=== PATIENT | female | born 1935 | race Caucasian/White ===

== ENCOUNTER → 2018-06-24 11:53 | Outpatient (CLI) | payer MEDICARE, OTHER, SELFPAY ==
--- NOTE | 2018-06-24 11:56 | DI.RAD.S_ITS ---
PROCEDURE: XR LUMBAR SPINE MIN 4V INDICATIONS: Lumbar stenosis TECHNIQUE: 5 views of the lumbar spine were acquired. COMPARISON: None. FINDINGS: Bones: 5 nonrib-bearing vertebrae are present. There is sacralization of L5 on the right There is marked dextroconvex rotoscoliosis. Retrolisthesis at L1-2 and L2-3, anterolisthesis at L4-5. Multilevel disc degeneration. No vertebral body compression fractures. No suspicious bony lesions. Soft tissues: Overlying bowel gas pattern is normal. No suspicious soft tissue calcifications. Oblique images: No pars defects. IMPRESSION: Rotoscoliosis and multilevel degenerative changes with malalignment. Dictated by: Ozzie Claros M.D. on 06/24/2018 at 12:35 Approved by: Ozzie Claros M.D. on 06/24/2018 at 12:37
== END ==
PROVIDERS: PCP Family Medicine; Visit Provider Physical Medicine & Rehabilitation
DX: M51.36 Other intervertebral disc degeneration, lumbar region (principal); M48.062 Spinal stenosis, lumbar region with neurogenic claudication; M41.86 Other forms of scoliosis, lumbar region
CPT/HCPCS: 72110; 99214

== ENCOUNTER → 2018-08-05 09:31 | Outpatient (CLI) | payer MEDICARE, OTHER, SELFPAY ==
--- NOTE | 2018-08-05 09:33 | DI.MRI.S_ITS ---
PROCEDURE: MR LUMBAR SPINE WO CON INDICATIONS: Lumbar stenosis TECHNIQUE: Noncontrast sagittal T1 spin echo and T2 fast echo, sagittal STIR, axial T1 and T2 fast spin echo through the lumbar spine. In this patient, coronal T2-weighted images were also performed. COMPARISON: [facility], MR, L-SPINE WITHOUT CONTRAST, 09/27/2007, 10:40. [facility], CR, XR LUMBAR SPINE MIN 4V, 06/24/2018, 11:47. FINDINGS: Image quality: Motion Alignment and Curvature: Moderate dextroconvex scoliosis is seen. Mild retrolisthesis is seen at the T12-L1, L1-L2, and L2-L3 levels. There is minimal anterolisthesis seen at L3-L4 and L4-L5. Bone Marrow: Within the posterior aspect of the L2 vertebral body, there is a focus that is hypointense on T1-weighted and T2-weighted imaging, with no significant increased STIR signal. This is new compared to the prior examination. No acute vertebral body compression fractures. Spinal Cord: Conus medullaris terminates at the L1 level. Visualized cord demonstrates normal signal and size. Paraspinous Soft Tissues: No paravertebral masses. T12-L1: Mild to moderate loss of disc height and disc signal are seen. Moderate disc bulge is seen. Moderate bilateral neural foraminal narrowing is seen, left worse than right. Mild central canal narrowing is seen. These degenerative changes have progressed compared to 2006. L1-L2: Moderate loss of disc height is seen. Loss of disc signal is seen. Reactive marrow endplate changes are seen, which are hyperintense on T1-weighted and T2-weighted imaging and most consistent with fatty metaplasia (Modic type II changes). Moderate to prominent disc bulge is seen, which is eccentric to the left. Mild to moderate facet hypertrophy is seen. There is mild to moderate right-sided and at least moderate left-sided neural foraminal narrowing seen. These degenerative changes have progressed compared to the prior MRI. L2-L3: Moderate loss of disc height is seen. Loss of disc signal is seen. Moderate to prominent disc bulge is seen, which is eccentric to the left. At least moderate facet hypertrophy is seen. There is associated moderate hypertrophy of the ligamentum flavum. There is at least moderate right-sided and moderate to severe left-sided neural foraminal narrowing seen. There is associated impingement upon the exiting left L2 nerve root. Moderate to severe central canal narrowing is seen, as on series 6 image 11. These degenerative changes are progressed compared to 2007. L3-L4: Mild to moderate loss of disc height and disc signal are seen. Prominent facet hypertrophy is seen, with associated prominent hypertrophy of the ligamentum. There is at least moderate right-sided and moderate right-sided neural foraminal narrowing seen. Moderate to severe central canal narrowing is seen, as on series 9 image 18. These degenerative changes have greatly progressed compared to 2007. L4-L5: Moderate disc bulge is seen, which is eccentric to the right. Prominent facet hypertrophy is seen, with associated moderate hypertrophy of the ligamentum flavum. Moderate to severe bilateral neural foraminal narrowing is seen. There is a degree of impingement seen upon the exiting nerve roots. Moderate to severe central canal narrowing is seen. These degenerative changes are worse than in 2007. L5-S1: Mild loss of disc height is seen. Loss of disc signal is seen. Mild generalized disc bulge is seen. Mild facet joint hypertrophy is seen. [id number] bilateral neural foraminal narrowing is seen. Mild to moderate central canal narrowing is seen. These degenerative changes have progressed compared to the prior. IMPRESSION: Multiple levels of lumbar spine degenerative change are seen, which have progressed compared to 2007. Moderate dextroconvex scoliosis. Dictated by: Preet Kennedy M.D. on 08/05/2018 at 10:39 Approved by: Preet Kennedy M.D. on 08/05/2018 at 10:52
== END ==
PROVIDERS: Family Provider Nurse Practitioner; PCP Family Medicine; Visit Provider Physical Medicine & Rehabilitation
DX: M48.062 Spinal stenosis, lumbar region with neurogenic claudication (principal); M48.07 Spinal stenosis, lumbosacral region; M41.9 Scoliosis, unspecified; M51.36 Other intervertebral disc degeneration, lumbar region; M51.37 Other intervertebral disc degeneration, lumbosacral region; Z96.652 Presence of left artificial knee joint; M85.80 Other specified disorders of bone density and structure, unspecified site; M41.50 Other secondary scoliosis, site unspecified
CPT/HCPCS: 72148; 99213

== ENCOUNTER 2018-08-09 13:30 | Outpatient (CLI) | payer MEDICARE, OTHER, SELFPAY ==
[2018-08-09] VITALS (8 sets, daily range): BP systolic 122–176; BP diastolic 54–75; PULSE 67–74; RESP 16–18; TEMP 36.6; O2SAT 98–100
--- NOTE | 2018-08-09 13:33 | DI.RAD.S_ITS ---
PROCEDURE: PAIN L INTERLAMINAR/CAUDAL INJ INDICATIONS: SPINAL STENOSIS FINDINGS: Fluoroscopic spot filming was performed to verify placement of spinal needles at the L4-L5 level(s), as labeled on the films. Appropriate location(s) of the needle tip(s) was confirmed by injection of iodinated contrast. IMPRESSION: Fluoroscopy for pain management. Dictated by: Padmaja Hanks M.D. on 08/09/2018 at 16:17 Approved by: Padmaja Hanks M.D. on 08/09/2018 at 16:17
[2018-08-09] MEDS: MIDAZOLAM 5 MG/5 ML VIAL IV (14:37)
[2018-08-09] MEDS: IOPAMIDOL 15 ML VIAL 3 ML INJ (14:41)
[2018-08-09] MEDS: DEXAMETHASONE 10 MG/ML VIAL 20 MG INJ (14:41)
[2018-08-09] MEDS: BUPIVACAINE 0.25% (PF) VIAL 2 ML INJ (14:41)
[2018-08-09] MEDS: methylPREDNISolone acetate 80 MG/ML VIAL INJ (14:41)
--- NOTE | 2018-08-09 14:46 | P.PCN_ITS ---
Procedures Date/Time Date of procedure: 08/09/18 Time of procedure: 14:45 General Procedure description: PROVIDER: Quintin Dooley DO Operative Note PREOP DIAGNOSIS 1. HNP WITH RADICULAR FEATURES, 2. MULTILEVEL CENTRAL STENOSIS, POST OP DIAGNOSIS 1. HNP WITH RADICULAR FEATURES, 2. MULTILEVEL CENTRAL STENOSIS PROCEDURES 1. FLUORSCOPICALLY GUIDED CONTRAST CONTROLLED INTERLAMINAR EPIDURAL STEROID INJECTION -L4/5 PHYSICIAN: Quintin Dooley DO INDICATIONs: Nanda is referred by Dr. Arellano for treatment of Bilateral Foraminal Stenosis R> L LE symptoms. FINDINGS Multilevel Central Spinal Stenosis with Nerve Root Compression DESCRIPTION OF PROCEDURE Fluoroscopically guided, contrast-controlled L4/5 translaminar epidural steroid injection. Following denial of allergy and review of potential side effects and complications, including, but not necessarily limited to, infection, allergic reaction, local tissue breakdown, temporary as well as permanent nerve injury, paralysis, stroke and possible , the patient indicated that the patient understood and agreed to proceed. An informed consent document was signed by the patient, witnessed by a nurse, and placed in the patient's chart. Additionally, other treatment options including modalities, medications, and physical therapy were reviewed with the patient. After review of previous anaesthesic history and IV conscious sedation the patient was deemed safe to proceed with todays procedure with IV conscious sedation as ASA class II designation. Safety time-out was performed to confirm patient ID, procedure to be performed and site of procedure. IV sedation was accomplished with a combination of 1mg was administered by the RN after DO order , titrated to patient comfort during the course of the procedure while the patient remained responsive to all verbal commands In the prone position, following sterile prep and drape of the lumbar region, the L4/5 translaminar space was identified fluoroscopically. The skin was anesthetized via a 25-gauge, 1.5-inch needle with 1% lidocaine solution. At this point, a 22-gauge short bevel spinal needle was atraumatically introduced and advanced under fluoroscopic guidance into the region of the L4/5 translaminar space. Depth was confirmed on lateral view. Radiological data, including multiple fluoroscopic views of the lumbar spine, reveal a spinal needle at the L4/5 translaminar space. Lateral views then show placement of the needle in the epidural space. Subsequent views show contrast material flowing superiorly and inferiorly in the epidural space. No vascular or intrathecal uptake is observed. At this point, using loss of resistance technique with saline and air, the epidural space was entered. This was confirmed following negative aspiration with injection of approximately 1.5 cc of Isovue 200, showing excellent epidural flow without vascular or intrathecal uptake. At this point, 1 cc of 1 % lidocaine solution combined with 3 cc or 20 mg of dexamethasone and 80mg Depo medrol was injected without incident. The patient tolerated the procedure well without signs or symptoms of complications prior to transfer to the recovery area continued monitoring without incident. The patient was then transferred to the recovery area where they were observed for an appropriate period of time after the injection. The patient reported a VAS score of 6 prior to the procedure and a post- procedure VAS of 0. Total Fluoroscopy Time: 11.8 seconds, 8.99 mGy Total Conscious Sedation Time: 24min POST OP INSTRUCTIONS The patient was provided a Pain Log to continue to record their response to the target-specific procedure prior to follow-up visit with their referring physician. Additionally, specific post-injection care instructions and a contact number to our office were provided if concerns arise regarding possible complications associated with the procedure are suspected. Quintin Dooley DO Complications: none
--- NOTE | 2018-08-10 13:21 | PC.NURSE ---
post follow up call made and pt is doing great. She said Absolutely Wonderful. pt knows to continue with pain log and bring to F/U appt.
== END 2018-08-09 15:26 ==
PROVIDERS: PCP Family Medicine; Visit Provider Physical Medicine & Rehabilitation
DX: M48.062 Spinal stenosis, lumbar region with neurogenic claudication (principal); M51.16 Intervertebral disc disorders with radiculopathy, lumbar region
CPT/HCPCS: 62323; 99152; J1040; J1100; J2250

== ENCOUNTER 2018-11-16 08:47 | Outpatient (CLI) | payer MEDICARE, OTHER, SELFPAY ==
--- NOTE | 2018-11-16 08:49 | DI.RAD.S_ITS ---
PROCEDURE: PAIN L INTERLAMINAR/CAUDAL INJ INDICATIONS: SPINAL STENOSIS FINDINGS: Fluoroscopic spot filming was performed to verify placement of spinal needles at the L4-L5 level(s), as labeled on the films. Appropriate location(s) of the needle tip(s) was confirmed by injection of iodinated contrast. Dictated by: Henrry Hinton M.D. on 11/17/2018 at 11:16 Approved by: Henrry Hinton M.D. on 11/17/2018 at 11:16
[2018-11-16 09:10] VITALS: BP 107/71; PULSE 96; RESP 16; TEMP 36.2; O2SAT 95
[2018-11-16 09:51] VITALS: BP 130/77; PULSE 73; RESP 16; O2SAT 99
[2018-11-16 09:55] VITALS: BP 135/72; PULSE 72; RESP 18; O2SAT 99
[2018-11-16 09:59] VITALS: BP 135/72; PULSE 70; RESP 16; O2SAT 98
--- NOTE | 2018-11-16 10:02 | PC.NURSE ---
ASSISTING PT OFF TABLE AND TRANSPORTING TO POST PROC AREA IN STABLE CONDITION
[2018-11-16 10:03] VITALS: BP 114/69; PULSE 84; RESP 16; O2SAT 98
--- NOTE | 2018-11-16 10:04 | P.PCN_ITS ---
Procedures Date/Time Date of procedure: 11/16/18 Time of procedure: 10:03 General Procedure description: PROVIDER: Quintin Dooley DO Operative Note PREOP DIAGNOSIS 1. HNP WITH RADICULAR FEATURES, 2. MULTILEVEL CENTRAL STENOSIS, POST OP DIAGNOSIS 1. HNP WITH RADICULAR FEATURES, 2. MULTILEVEL CENTRAL STENOSIS PROCEDURES 1. FLUORSCOPICALLY GUIDED CONTRAST CONTROLLED INTERLAMINAR EPIDURAL STEROID INJECTION -L4/5 PHYSICIAN: Quintin Dooley DO INDICATIONs: Nanda is referred by Dr. Arellano for treatment of Bilateral Foraminal Stenosis R> L LE symptoms. FINDINGS Multilevel Central Spinal Stenosis with Nerve Root Compression DESCRIPTION OF PROCEDURE Fluoroscopically guided, contrast-controlled L4/5 translaminar epidural steroid injection. Following denial of allergy and review of potential side effects and complications, including, but not necessarily limited to, infection, allergic reaction, local tissue breakdown, temporary as well as permanent nerve injury, paralysis, stroke and possible , the patient indicated that the patient understood and agreed to proceed. An informed consent document was signed by the patient, witnessed by a nurse, and placed in the patient's chart. Additionally, other treatment options including modalities, medications, and physical therapy were reviewed with the patient. After review of previous anaesthesic history and IV conscious sedation the patient was deemed safe to proceed with todays procedure with IV conscious sedation as ASA class II designation. Safety time-out was performed to confirm patient ID, procedure to be performed and site of procedure. IV sedation was deemed unnecessary and thus was not administered by the RN after DO order, titrated to patient the patient remained responsive to all verbal commands In the prone position, following sterile prep and drape of the lumbar region, the L4/5 translaminar space was identified fluoroscopically. The skin was anesthetized via a 25-gauge, 1.5-inch needle with 1% lidocaine solution. At this point, a 22-gauge short bevel spinal needle was atraumatically introduced and advanced under fluoroscopic guidance into the region of the L4/5 translaminar space. Depth was confirmed on lateral view. Radiological data, including multiple fluoroscopic views of the lumbar spine, reveal a spinal needle at the L4/5 translaminar space. Lateral views then show placement of the needle in the epidural space. Subsequent views show contrast material flowing superiorly and inferiorly in the epidural space. No vascular or intrathecal uptake is observed. At this point, using loss of resistance technique with saline and air, the epidural space was entered. This was confirmed following negative aspiration with injection of approximately 1.5 cc of Isovue 200, showing excellent epidural flow without vascular or intrathecal uptake. At this point, 1 cc of 1 % lidocaine solution combined with 3 cc or 20 mg of dexamethasone and 80mg Depo medrol was injected without incident. The patient tolerated the procedure well without signs or symptoms of complications prior to transfer to the recovery area continued monitoring without incident. The patient was then transferred to the recovery area where they were observed for an appropriate period of time after the injection. The patient reported a VAS score of 6 prior to the procedure and a post- procedure VAS of 0. Total Fluoroscopy Time: 11.8 seconds, 8.99 mGy Total Conscious Sedation Time: 24min POST OP INSTRUCTIONS The patient was provided a Pain Log to continue to record their response to the target-specific procedure prior to follow-up visit with their referring physician. Additionally, specific post-injection care instructions and a contact number to our office were provided if concerns arise regarding possible complications associated with the procedure are suspected. Quintin Dooley DO Complications: none
[2018-11-16] MEDS: DEXAMETHASONE 10 MG/ML VIAL 20 MG INJ (10:20)
[2018-11-16] MEDS: BUPIVACAINE 0.25% (PF) VIAL 2 ML INJ (10:20)
[2018-11-16] MEDS: methylPREDNISolone acetate 80 MG/ML VIAL INJ (10:20)
--- NOTE | 2018-11-16 10:20 | PC.NURSE ---
Received pt from post procedure via wheelchair from Jo COOPER for continued monitoring. pt alert and received no extra sedation. Able to move from w/c to chair with stand by assist.
[2018-11-16] MEDS: IOPAMIDOL 15 ML VIAL 3 ML INJ (10:21)
== END 2018-11-16 10:23 | disposition home or self-care (01) ==
PROVIDERS: PCP Family Medicine; Visit Provider Physical Medicine & Rehabilitation
DX: M51.16 Intervertebral disc disorders with radiculopathy, lumbar region (principal); M48.062 Spinal stenosis, lumbar region with neurogenic claudication
CPT/HCPCS: 62323; 99152; J1040; J1100; J2250

== ENCOUNTER 2019-04-05 10:42 | Outpatient (CLI) | payer MEDICARE, OTHER, SELFPAY ==
[2019-04-05] VITALS (8 sets, daily range): BP systolic 114–143; BP diastolic 44–90; PULSE 66–86; RESP 16–18; TEMP 36.4; O2SAT 96–100
--- NOTE | 2019-04-05 10:44 | DI.RAD.S_ITS ---
PROCEDURE: PAIN L INTERLAMINAR/CAUDAL INJ INDICATIONS: SPINAL STENOSIS FINDINGS: Fluoroscopic spot filming was performed to verify placement of spinal needles at the L4-L5 level(s), as labeled on the films. Appropriate location(s) of the needle tip(s) was confirmed by injection of iodinated contrast. Dictated by: Henrry Hinton M.D. on 04/05/2019 at 12:57 Approved by: Henrry Hinton M.D. on 04/05/2019 at 13:04
[2019-04-05] MEDS: MIDAZOLAM 5 MG/5 ML VIAL IV (12:15)
[2019-04-05] MEDS: BUPIVACAINE 0.25% (PF) VIAL 2 ML INJ (12:20)
[2019-04-05] MEDS: IOPAMIDOL 15 ML VIAL 3 ML INJ (12:20)
[2019-04-05] MEDS: DEXAMETHASONE 10 MG/ML VIAL 20 MG INJ (12:20)
[2019-04-05] MEDS: BETAMETHASONE 30 MG/5 ML MDV 6 MG INJ (12:20)
--- NOTE | 2019-04-05 12:24 | PC.NURSE ---
ASSISTING PT OFF TABLE AND TRANSPORTING TO POST PROC AREA IN STABLE CONDITION
--- NOTE | 2019-04-05 12:27 | PM.PROC.1 ---
Procedures Date/Time Date of procedure: 04/05/19 Time of procedure: 12:27 General Procedure description: PROVIDER: Quintin Dooley DO Operative Note PREOP DIAGNOSIS 1. HNP WITH RADICULAR FEATURES, 2. MULTILEVEL CENTRAL STENOSIS, POST OP DIAGNOSIS 1. HNP WITH RADICULAR FEATURES, 2. MULTILEVEL CENTRAL STENOSIS PROCEDURES 1. FLUORSCOPICALLY GUIDED CONTRAST CONTROLLED INTERLAMINAR EPIDURAL STEROID INJECTION -L4/5 PHYSICIAN: Quintin Dooley DO INDICATIONs: Nanda is referred by Dr. Arellano for treatment of Bilateral Foraminal Stenosis R>L LE symptoms. FINDINGS Multilevel Central Spinal Stenosis with Nerve Root Compression DESCRIPTION OF PROCEDURE Fluoroscopically guided, contrast-controlled L4/5 translaminar epidural steroid injection. Following denial of allergy and review of potential side effects and complications, including, but not necessarily limited to, infection, allergic reaction, local tissue breakdown, temporary as well as permanent nerve injury, paralysis, stroke and possible , the patient indicated that the patient understood and agreed to proceed. An informed consent document was signed by the patient, witnessed by a nurse, and placed in the patient's chart. Additionally, other treatment options including modalities, medications, and physical therapy were reviewed with the patient. After review of previous anaesthesic history and IV conscious sedation the patient was deemed safe to proceed with todays procedure with IV conscious sedation as ASA class II designation. Safety time-out was performed to confirm patient ID, procedure to be performed and site of procedure. IV sedation was accomplished with 2mg of Versed administered by the RN after DO order, titrated to patient comfort during the course of the procedure while the patient remained responsive to all verbal commands In the prone position, following sterile prep and drape of the lumbar region, the L4/5 translaminar space was identified fluoroscopically. The skin was anesthetized via a 25-gauge, 1.5-inch needle with 1% lidocaine solution. At this point, a 22-gauge short bevel spinal needle was atraumatically introduced and advanced under fluoroscopic guidance into the region of the L4/5 translaminar space. Depth was confirmed on lateral view. Radiological data, including multiple fluoroscopic views of the lumbar spine, reveal a spinal needle at the L4/5 translaminar space. Lateral views then show placement of the needle in the epidural space. Subsequent views show contrast material flowing superiorly and inferiorly in the epidural space. No vascular or intrathecal uptake is observed. At this point, using loss of resistance technique with saline and air, the epidural space was entered. This was confirmed following negative aspiration with injection of approximately 1.5 cc of Isovue 200, showing excellent epidural flow without vascular or intrathecal uptake. At this point, 1 cc of 1% lidocaine solution combined with 3cc or 20mg of dexamethasone and 6mg of betamethasone was injected without incident. The patient tolerated the procedure well without signs or symptoms of complications prior to transfer to the recovery area continued monitoring without incident. The patient was then transferred to the recovery area where they were observed for an appropriate period of time after the injection. The patient reported a VAS score of 6 prior to the procedure and a post-procedure VAS of 0. Total Fluoroscopy Time: 11.8 seconds, 8.99 mGy Total Conscious Sedation Time: 24min POST OP INSTRUCTIONS The patient was provided a Pain Log to continue to record their response to the target-specific procedure prior to follow-up visit with their referring physician. Additionally, specific post-injection care instructions and a contact number to our office were provided if concerns arise regarding possible complications associated with the procedure are suspected. Quintin Dooley DO Complications: none
--- NOTE | 2019-04-05 12:34 | PC.NURSE ---
pt returned from procedure awake and alert, able to move from W/C to Chair with standby assist. Resumed monitoring from Jo COOPER.
== END 2019-04-05 12:52 | disposition home or self-care (01) ==
LOC: RAD 10:43
PROVIDERS: PCP Family Medicine; Visit Provider Physical Medicine & Rehabilitation
DX: M51.16 Intervertebral disc disorders with radiculopathy, lumbar region (principal); M48.062 Spinal stenosis, lumbar region with neurogenic claudication
CPT/HCPCS: 62323; 99152; J0702; J1100; J2250